=== PATIENT | female | born 1985 | race Caucasian/White ===

== ENCOUNTER 2016-05-21 06:50 | Inpatient (IN) | payer OTHER ==
[2016-05-21] MEDS ORDERED: Ibuprofen TAB* 600 MG PO PRN (08:38)
[2016-05-21] MEDS ORDERED: Acetaminophen TAB* 325 MG PO PRN (08:38)
[2016-05-21] MEDS ORDERED: OXYTOCIN* 10 UNITS/ML 1 ML VIAL IM ONE (08:38)
[2016-05-21] MEDS ORDERED: Glycerin ADULT SUPP PR PRN (08:38)
[2016-05-21] MEDS: Docusate CAP* 100 MG PO SCH ×2 (14:57→20:27)
[2016-05-22 08:38] LABS: Hematocrit 32 % (35-47); Hemoglobin 10.8 g/dl (12.0-16.0); Mean Corpuscular HGB Conc 34 g/dl (31-36); Mean Corpuscular Hemoglobin 30 pg (27-31); Mean Corpuscular Volume 88 fL (80-97); Mean Platelet Volume 10 um3 (7.4-10.4); Red Cell Distribution Width 13 % (10.5-15); White Blood Count 12.4 10^3/ul (3.5-10.8)
[2016-05-22] MEDS ORDERED: Ferrous Gluconate TAB* 324 MG TAB PO SCH (09:00)
[2016-05-22] MEDS: Simethicone TAB* 80 MG TAB.CHEW PO SCH ×2 (09:46→14:04)
[2016-05-22] MEDS: Witch Hazel PAD* JAR TOPICAL PRN (09:53)
[2016-05-22] MEDS: Docusate CAP* 100 MG PO SCH ×3 (09:54→20:04)
[2016-05-22] MEDS: Dibucaine 1% 28.35 GM TUBE PR PRN (09:54)
[2016-05-22 20:46] VITALS: BP 119/68
[2016-05-23] MEDS: Witch Hazel PAD* JAR TOPICAL PRN (09:38)
[2016-05-23] MEDS: Dibucaine 1% 28.35 GM TUBE PR PRN (09:38)
[2016-05-23] MEDS: Docusate CAP* 100 MG PO SCH (09:38)
== END 2016-05-23 12:00 | disposition home or self-care (01) | DRG 560 ==
LOC: MCHOBOUT 06:50 → MCHOB 07:26
PROVIDERS: ADMIT Obstetrics & Gynecology; ATTEND Obstetrics & Gynecology
PROC: 10E0XZZ Delivery of Products of Conception, External Approach (ICD-10-PCS; principal; 2016-05-21)
PROC: 0KQM0ZZ Repair Perineum Muscle, Open Approach (ICD-10-PCS; 2016-05-21)
DX: O70.1 Second degree perineal laceration during delivery (principal); Z37.0 Single live birth; Z3A.39 39 weeks gestation of pregnancy
CPT/HCPCS: 36415; 85025; A9270-GY; J2590